=== PATIENT | male | born 1950 | race Caucasian/White ===

== ENCOUNTER 2016-07-09 06:41 | Day surgery (SDC) | payer BC ==
--- NOTE | 2016-06-25 21:00 | HP ---
DATE OF ADMISSION: 07/09/2016 CHIEF COMPLAINT: Incisional hernia. HISTORY OF PRESENT ILLNESS: Patient is a 66-year-old male with a prior history of a PEG tube placement. He developed a hernia at the site of the PEG tube that has been increasing in size and causing discomfort. He is here today to schedule surgical repair. Past medical history is esophageal stricture, hypercholesterolemia, arthritis, chronic back pain. Past surgical history is back, PEG tube. Heart. MEDICATIONS: 1. Lipitor. 2. Naprosyn. 3. Aspirin. ALLERGIES: None. PHYSICAL EXAM: CHEST: No deformities. GENERAL: Well-developed, well-nourished male in no distress. ABDOMEN: Soft, nondistended, nontender. Hernia measuring approximately a 1.5 to 2 cm in size at the old PEG tube site. Associated diastases in that area as well in addition to prior chest tube incision sites. IMPRESSION: A 66-year-old male with incisional hernia. PLAN: Will proceed with operative repair on 07/09. The risks of bleeding, infection, postoperative pain, scarring, numbness, and recurrence were discussed. The patient understands and wishes to proceed.
[2016-07-06 13:03] VITALS: BMI 24.4
[~2016-07-09 06:41] MED LIST: DEXAMETHASONE SOD PHOSPHATE 10 MG/ML 1 ML VIAL IV ONE; HEPARIN SODIUM,PORCINE 5,000 UNIT/ML 1 ML VIAL SQ ONE; LACTATED RINGERS 1,000 ML IV SCH; MIDAZOLAM 2 MG/2 ML VIAL IV PRN; ONDANSETRON 4 MG/2 ML VIAL IVP ONE; SCOPOLAMINE 1.5MG/72HR PATCH TRANSDERM ONE; ceFAZolin 2 GM in SODIUM CHLORIDE 0.9% 100 ML IVPB ONE
[2016-07-09] MEDS ORDERED: LIDOCAINE 1% 20 ML VIAL (10MG/ML) FOR IV START INTRADERMA ONE (07:22)
[2016-07-09] MEDS ORDERED: MIDAZOLAM 2 MG/2 ML VIAL ONE (08:01)
[2016-07-09] MEDS ORDERED: LIDOCAINE 1% INJ 10MG/ML (20 ML MDV) ONE (08:01)
[2016-07-09] MEDS ORDERED: PROPOFOL 10 MG/ML 20 ML VIAL IV ONE (08:01)
[2016-07-09] MEDS ORDERED: VECURONIUM 10 MG VIAL IV ONE (08:01)
[2016-07-09] MEDS ORDERED: fentaNYL (PF) 50 MCG/ML 2 ML AMP ONE (08:01)
[2016-07-09] MEDS ORDERED: SUCCINYLCHOLINE CHLORIDE 100 MG/5 ML SYR IV ONE (08:01)
[2016-07-09] MEDS ORDERED: GLYCOPYRROLATE 0.2 MG/ML 2 ML VIAL ONE (08:01)
[2016-07-09] MEDS ORDERED: NEOSTIGMINE 1 MG/ML 10 ML VIAL ONE (08:01)
[2016-07-09] MEDS ORDERED: BUPIVACAIN-EPI 0.25%-1:200,000 30 ML VIAL SQ ONE ×3 (08:15→08:19)
[2016-07-09] MEDS ORDERED: LACTATED RINGERS 1,000 ML IV ONE ×2 (08:53)
[2016-07-09] MEDS ORDERED: HYDROcodone/APAP 5-325MG 1 EACH TAB PO PRN (09:06)
[2016-07-09] MEDS ORDERED: NALOXONE 0.4 MG/ML 1 ML VIAL IV PRN (09:06)
--- NOTE | 2016-07-09 09:09 | P.OP ---
Date of Procedure: 07/09/16 Procedure(s) Performed: PREOPERATIVE DIAGNOSIS: Reducible incisional hernia POSTOPERATIVE DIAGNOSIS: Same PROCEDURE: Repair incisional hernia with mesh SURGEON: Paolo EBL: Minimal ANESTHESIA: General COMPLICATIONS: None OPERATIVE PROCEDURE: Patient place never table in the supine position. The patient's abdomen was prepped and draped in usual sterile fashion. The previous PEG tube site was affected. The scar present was excised. The subcutaneous tissues were dissected. The fascial defect was immediately identified. This was about 2 cm in size. The fat overlying the fascia was freed circumferentially. In doing so identified 5 additional or defects in the fascia superior to the main hernia. The 6 cm ventral ex mesh was placed beneath the fascia after freeing of any adhesions. This was sutured to the fascia using trans-fascial 0 Ethibond sutures. Following that the fascial defects were closed using interrupted 0 Ethibond sutures. The case tissues were closed using 3-0 Vicryl sutures and the skin using a running 4-0 Monocryl stitch. Steri-Strips and sterile dressings were applied. DISPOSITION: Stable to recovery room
[2016-07-09 09:21] VITALS: TEMP 97.2
[2016-07-09] MEDS: HYDROmorphone 1 MG/ML 1 ML SYRINGE IVP PRN ×4 (09:30→09:56)
[2016-07-09] MEDS ORDERED: HYDROcodone/APAP 5-325MG 1 EACH TAB PO ONE (11:01)
[2016-07-09 11:11] VITALS: RESP 18
[2016-07-09 12:20] VITALS: BP 125/88; PULSE 77
== END 2016-07-09 13:32 | disposition home or self-care (01) ==
LOC: OR 06:41
PROVIDERS: ATTEND Surgery
DX: K43.2 Incisional hernia without obstruction or gangrene (principal); I25.10 Atherosclerotic heart disease of native coronary artery without angina pectoris; I10 Essential (primary) hypertension; K21.9 Gastro-esophageal reflux disease without esophagitis; Z87.891 Personal history of nicotine dependence; Z95.1 Presence of aortocoronary bypass graft; Z79.82 Long term (current) use of aspirin; Z79.899 Other long term (current) drug therapy
CPT/HCPCS: 49560; 49568; C1781; J2250; J1644; J1100; J2710; J0690; J2405; J2001; J3010; J1170; J0330; J2704